=== PATIENT | male | born 1985 ===

== ENCOUNTER 2018-12-25 22:30 | Emergency (ER) | payer OTHER ==
[2018-12-25 22:57] VITALS: RESP 18
[2018-12-25] MEDS ORDERED: Tramadol 25 mg PO STA (23:04)
[2018-12-26 00:59] VITALS: BP 114/71; PULSE 70; TEMP 97.5
[2018-12-26 01:04] VITALS: O2SAT 100
--- NOTE | 2018-12-26 01:04 | C.PDOC ---
History Of Present Illness 33 year old male presents to the ED c/o lower back pain radiating into his right thigh and leg for the past month. Patient states he has been taking OTC pain medications and doing cupping with minimal relief. Patient took Naproxen at 16:00 that were given by a relative, with no relief. Patient denies fever, chills, nausea, vomit, bowel incontinence, saddle anesthesia, weakness, numbness, rash, injury, fall, trauma. Time Seen by Provider: 12/25/18 22:57 Chief Complaint (Nursing): Back Pain History Per: Patient History/Exam Limitations: no limitations Onset/Duration Of Symptoms: Days Current Symptoms Are (Timing): Still Present Quality Of Discomfort: "Pain" Previous Symptoms: Back Pain Recent travel outside of the [place]: No Additional History Per: Patient Past Medical History Reviewed: Historical Data, Nursing Documentation, Vital Signs Vital Signs: Last Vital Signs Temp 98.9 F 12/25/18 22:48 Pulse 73 12/25/18 22:48 Resp 18 12/25/18 22:48 BP 114/70 12/25/18 22:48 Pulse Ox 100 12/25/18 22:48 - Medical History PMH: Gastritis Denies: Chronic Kidney Disease Surgical History: No Surg Hx Family History: States: Unknown Family Hx - Social History Hx Alcohol Use: No Hx Substance Use: No - Immunization History Hx Tetanus Toxoid Vaccination: Yes Hx Influenza Vaccination: No Hx Pneumococcal Vaccination: No Review Of Systems Constitutional: Negative for: Fever, Chills Cardiovascular: Negative for: Chest Pain, Palpitations Respiratory: Negative for: Shortness of Breath Gastrointestinal: Negative for: Nausea, Vomiting, Abdominal Pain Musculoskeletal: Positive for: Back Pain Skin: Negative for: Rash Neurological: Negative for: Weakness, Numbness, Headache Physical Exam - Physical Exam Appears: Non-toxic, No Acute Distress Skin: Normal Color, Warm, Dry, Other (diffuse circular erythematous marking consistent with cupping treatment ) Head: Atraumatic, Normacephalic Eye(s): bilateral: Normal Inspection Neck: Normal ROM, Supple Chest: Symmetrical Cardiovascular: Rhythm Regular Respiratory: Normal Breath Sounds, No Rales, No Rhonchi, No Wheezing Gastrointestinal/Abdominal: Soft, No Tenderness, No Guarding, No Rebound Back: Paraspinal Tenderness (paralumbar right sided ), Straight Leg Raising ((+) 45 degrees) Extremity: Normal ROM, No Tenderness, No Swelling Neurological/Psych: Oriented x3, Normal Speech, Normal Cognition, Normal Motor, Normal Sensation Gait: Steady ED Course And Treatment O2 Sat by Pulse Oximetry: 100 (ON RA) Pulse Ox Interpretation: Normal - Other Rad LS spine X-Ray X-Ray: Interpreted by Me, Viewed By Me Interpretation: No acute pathology seen Progress Note: Plan: - Decadron 10 mg IM. - Valium 5 mg PO. - Tramadol 50 mg PO. - Ls spine X-Ray. Patient reports improvement after medications were given. Patient seen ambulating in the ED with a stable gait. Patient is advised to follow up with PMD for further evaluation. Disposition Counseled Patient/Family Regarding: Diagnosis, Need For Followup, Rx Given - Disposition Disposition: HOME/ ROUTINE Disposition Time: 00:56 Condition: STABLE Additional Instructions: Take medications as directed Return to ER if worse Prescriptions: Cyclobenzaprine [Cyclobenzaprine HCl] 10 mg PO HS #7 tab Lidocaine 5% [Lidoderm] 1 each TP DAILY #20 patch Naproxen [Naprosyn] 1 tab PO BID PRN #25 tab PRN Reason: Pain predniSONE [Prednisone] 20 mg PO DAILY #7 tab Instructions: Sciatica Forms: [employer] (Lithuanian) - Clinical Impression Clinical Impression: Sciatica - PA / MANUFACTURING DIRECTOR / Resident Statement MD/DO has reviewed & agrees with the documentation as recorded. - Scribe Statement The provider has reviewed the documentation as recorded by the Scribe [place] All medical record entries made by the Scribe were at my direction and personally dictated by me. I have reviewed the chart and agree that the record accurately reflects my personal performance of the history, physical exam, medical decision making, and the department course for this patient. I have also personally directed, reviewed, and agree with the discharge instructions and disposition.
--- NOTE | 2018-12-26 13:28 | RAD ---
Date of service: 12/26/2018 PROCEDURE: Radiographs of the Lumbar Spine. HISTORY: Pain COMPARISON: No prior. FINDINGS: BONES: Normal alignment. No listhesis. No fracture. DISC SPACES: Unremarkable. OTHER FINDINGS: None. IMPRESSION: Unremarkable radiographs of the lumbar spine.
== END 2018-12-26 01:09 | disposition home or self-care (01) ==
LOC: C.ER 22:30
DX: M54.30 Sciatica, unspecified side (principal)
CPT/HCPCS: 72100; 96372; 99283; J1100